=== PATIENT | male | born 1960 | race Caucasian/White ===

== ENCOUNTER 2023-03-04 14:28 | Observation (INO) | payer OTHER ==
[2023-03-04 15:37] LABS: Basophils % (A) 0 %; Eosinophils # (A) 0.2 k/uL (0-0.7); Eosinophils % (A) 2 %; HCT 43.7 % (39.0-53.0); HGB 14.6 gm/dL (13.0-17.5); Lymphocytes # (A) 2.3 k/uL (1.0-4.8); Lymphocytes % (A) 27 %; MCH 30.3 pg (25.0-35.0); MCHC 33.3 g/dL (31.0-37.0); Mean Platelet Volume 7.9; Monocytes # (A) 0.4 k/uL (0-1.0); Monocytes % (A) 4 %; Neutrophils # (A) 5.4 k/uL (1.3-7.7); Neutrophils % (A) 64 %; Platelet Count 246 k/uL (150-450); RDW 12.7 % (11.5-15.5); WBC 8.3 k/uL (3.8-10.6)
[2023-03-04 15:50] LABS: ALT 23 U/L (4-49); AST 21 U/L (17-59); African American GFR (CKD) >90 (>60 ml/min/1.73 sqM); Albumin 4.5 g/dL (3.5-5.0); Alkaline Phosphatase 80 U/L (38-126); Anion Gap 9 mmol/L; Blood Urea Nitrogen 19 mg/dL (9-20); C Reactive Protein 0.6 mg/dL (<1.0); Calcium 9.3 mg/dL (8.4-10.2); Carbon Dioxide 25 mmol/L (22-30); Chloride 105 mmol/L (98-107); Glucose 92 mg/dL (74-99); Non-African American GFR(CKD) >90 (>60 ml/min/1.73 sqM); Potassium 4.5 mmol/L (3.5-5.1); Sodium 139 mmol/L (137-145); Total Bilirubin 0.5 mg/dL (0.2-1.3); Total Protein 6.7 g/dL (6.3-8.2)
[2023-03-04] MEDS ORDERED: SODIUM CHLORIDE 0.9% 1,000 ML IV ONE (16:07)
--- NOTE | 2023-03-04 16:19 | ED ---
Eye Problem HPI - General Chief complaint: Eye Problems Stated complaint: Abn Labs Time Seen by Provider: 03/04/23 15:55 Source: patient, RN notes reviewed Mode of arrival: ambulatory Limitations: no limitations - History of Present Illness Initial comments: This is a pleasant 62-year-old male presents earns apparently blurry vision in the upper portion of his right eye which started about 5 days ago. Patient denying any pain. Patient states that the vision change seems to be staying about the same. He is describing a grade time vision to the upper portion of his right eye only. States that he is satting well on her left eye. Patient went to his eye doctor today and was eventually sent to Dr. Eldridge. Patient was sent here for further evaluation. Patient has a history of type 2 diabetes, hypertension. Patient sent over for carotid evaluation, as inflammatory markers, CBC. 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 Patient denying any chest pain or shortness of breath. No fever or chills. No sore throat. No nausea or vomiting. No abdominal pain. No focal weakness. No paresthesias. No dizziness. MD chief complaint: vision change - Related Data Allergies Allergy/AdvReac Type Severity Reaction Status Date / Time No Known Allergies Allergy Verified 03/04/23 14:58 Review of Systems ROS Statement: Those systems with pertinent positive or pertinent negative responses have been documented in the HPI. ROS Other: All systems not noted in ROS Statement are negative. Past Medical History Past Medical History: Diabetes Mellitus History of Any Multi-Drug Resistant Organisms: None Reported Past Surgical History: No Surgical Hx Reported Smoking Status: Former smoker Past Alcohol Use History: None Reported Past Drug Use History: None Reported General Exam - General Exam Comments Initial Comments: Patient does not appear to be in any distress, cranial nerves II through XII grossly intact. No focal neurologic deficits. Vital signs reviewed Limitations: no limitations General appearance: alert, in no apparent distress Head exam: Present: atraumatic, normocephalic, normal inspection Eye exam: Present: normal appearance, PERRL, EOMI, other (Visual field loss to the upper portion of the right eye. Visual acuity testing seems to be normal otherwise. 20/20 left eye. 20/25 right eye. Pupils equal round reactive to light and accommodation.). Absent: scleral icterus, conjunctival injection, periorbital swelling ENT exam: Present: normal exam, mucous membranes moist Neck exam: Present: normal inspection. Absent: tenderness, meningismus, lymphadenopathy Respiratory exam: Present: normal lung sounds bilaterally. Absent: respiratory distress, wheezes, rales, rhonchi, stridor Cardiovascular Exam: Present: regular rate, normal rhythm, normal heart sounds. Absent: systolic murmur, diastolic murmur, rubs, gallop, clicks GI/Abdominal exam: Present: soft, normal bowel sounds. Absent: distended, t enderness, guarding, rebound, rigid Extremities exam: Present: normal inspection, full ROM, normal capillary refill. Absent: tenderness, pedal edema, joint swelling, calf tenderness Back exam: Present: normal inspection Neurological exam: Present: alert, oriented X3, CN II-XII intact Psychiatric exam: Present: normal affect, normal mood Skin exam: Present: warm, dry, intact, normal color. Absent: rash Course Vital Signs 03/04/23 03/04/23 14:54 17:00 Temperature 98.5 F 98.1 F Pulse Rate 77 62 Respiratory 16 18 Rate Blood Pressure 131/74 131/74 O2 Sat by Pulse 96 99 Oximetry - Reevaluation(s) Reevaluation #1: 03/04/23 17:31 Reevaluated, resting comfortably in bed. No acute distress. No change in clinical status. The case was discussed in detail with ED attending physician. Presentation, findings, treatment plan discussed in detail. Call placed for hospitalist physician. Medical Decision Making - Medical Decision Making Was pt. sent in by a medical professional or institution? @ -[by , PA, BOOM PU[employer] OPERATOR, urgent care, hospital, or half-way] Did you speak to anyone other than the patient for history? Patient sent in by Dr. Eldridge, notes reviewed @ -[EMS, parent, family, police, friend?]no Did you review nursing and triage notes? @ -[agree or disagree, why?] Agree Were old charts reviewed? @ -[outside hosp., previous admissions, EMS record, old EKG, old radiological studies, urgent care reports/EKGs, half-way records?] Notes reviewed from ophthalmology office. Differential Diagnosis? @ Differential diagnosis includes but not limited to: Aspirin, visual field loss, CVA, temporal arteritis, retinal hemorrhage, vitreous hemorrhage. EKG interpreted by me (3pts min.)? @ -EKG interpretation by me at 1635 reveals sinus rhythm with a rate of 61, no acute ST or T-wave changes. No cares morphology. Normal axis. Normal intervals. No comparison study X-rays interpreted by me (1pt min.)? @ - None CT interpreted by me (1pt min.)? @ -[CT of brain and CTA head and neck interpreted by me shows no evidence of acute pathology. Reviewed radiology interpretation. U/S interpreted by me (1pt. min.)? @ -na What testing was considered but not performed? (CT, X-rays, U/S, labs)? Why? @ MRI considered, will order as inpatient What meds were considered but not given? Why? @ -[none] Did you discuss the management of the patient with other professionals? @ -Case discussed with the hospitalist physician, Dr. Horton would subsequent admission of patient., Discussed with mold tooler, Dr. Eldridge, The case was discussed in detail with ED attending physician. Presentation, findings, treatment plan discussed in detail. Did you reconcile home meds? @ -Review did not reconciled Was smoking cessation discussed for >3mins.? @ -Discussed, smoking cessation discussed in detail with the patient. Treatment, risks discussed.I discussed smoking cessation for greater than 3 minutes. The risks of smoking were discussed with the patient including but not limited to risks of cancer, stroke, coronary artery disease and COPD. Also discussed with the patient were multiple methods of quitting smoking. Lastly we discussed the financial costs of smoking. Was critical care preformed (if so, how long)? @ -[none] Were there social determinants of health that impacted care today? How? (Homelessness, low income, unemployed, alcoholism, drug addiction, tr ansportation, low edu. Level, literacy, decrease access to med. care, snf, rehab)? @ -None apparent Was there de-escalation of care discussed even if they declined? (Discuss DNR or withdrawal of care, Hospice)? @ -no What co-morbidities impacted this encounter? (DM, HTN, Smoking, COPD, CAD, Cancer, CVA, Hep., AIDS, mental health diagnosis, sleep apnea, morbid obesity)? @ -Hypertension Was patient admitted / discharged? @ -Stable, admitted Undiagnosed new problem with uncertain prognosis? @ -Uncertain prognosis, unlikely to posterior to life although a threat to vision. Drug Therapy requiring intensive monitoring for toxicity (Heparin, Nitro, Insulin, Cardizem)? @ -[none] Were any procedures done? @ -[none] Diagnosis/symptom? @ -Visual impairment, right eye Acute, or Chronic, or Acute on Chronic? @ -Acute Uncomplicated (without systemic symptoms) or Complicated (systemic symptoms)? @ -Complicated due to vision impairment Side effects of treatment? @ -[none] Exacerbation, Progression, or Severe Exacerbation] @ -[no] Poses a threat to life or bodily function? @ -Threat to vision Admission and discussed in detail, patient admitted for shared decision-making. - Lab Data Result diagrams: 03/04/23 15:02 03/04/23 15:02 Lab Results 03/04/23 03/04/23 Range/Units 15:02 15:02 WBC 8.3 (3.8-10.6) k/uL RBC 4.80 (4.30-5.90) m/uL Hgb 14.6 (13.0-17.5) gm/dL Hct 43.7 (39.0-53.0) % MCV 91.0 (80.0-100.0) fL MCH 30.3 (25.0-35.0) pg MCHC 33.3 (31.0-37.0) g/dL RDW 12.7 (11.5-15.5) % Plt Count 246 (150-450) k/uL MPV 7.9 Neutrophils % 64 % Lymphocytes % 27 % Monocytes % 4 % Eosinophils % 2 % Basophils % 0 % Neutrophils # 5.4 (1.3-7.7) k/uL Lymphocytes # 2.3 (1.0-4.8) k/uL Monocytes # 0.4 (0-1.0) k/uL Eosinophils # 0.2 (0-0.7) k/uL Basophils # 0.0 (0-0.2) k/uL Sodium 139 (137-145) mmol/L Potassium 4.5 (3.5-5.1) mmol/L Chloride 105 (98-107) mmol/L Carbon Dioxide 25 (22-30) mmol/L Anion Gap 9 mmol/L BUN 19 (9-20) mg/dL Creatinine 0.75 (0.66-1.25) mg/dL Est GFR (CKD-EPI)AfAm >90 (>60 ml/min/1.73 sqM) Est GFR (CKD-EPI)NonAf >90 (>60 ml/min/1.73 sqM) Glucose 92 (74-99) mg/dL Calcium 9.3 (8.4-10.2) mg/dL Total Bilirubin 0.5 (0.2-1.3) mg/dL AST 21 (17-59) U/L ALT 23 (4-49) U/L Alkaline Phosphatase 80 (38-126) U/L C-Reactive Protein 0.6 (<1.0) mg/dL Total Protein 6.7 (6.3-8.2) g/dL Albumin 4.5 (3.5-5.0) g/dL Disposition Clinical Impression: Visual impairment of right eye, Corneal abrasion Disposition: ADMITTED IP TO THIS [facility] Condition: Stable Is patient prescribed a controlled substance at d/c from ED?: No Referrals: Donal Garcia MD [Primary Care Provider] - 1-2 days Time of Disposition: 17:42 Decision Date: 03/04/23 Decision Time: 17:43
--- NOTE | 2023-03-04 16:34 | CT ---
EXAMINATION TYPE: CT brain wo con CT DLP: 1169.6 mGycm, Automated exposure control for dose reduction was used. DATE OF EXAM: 03/04/2023 4:27 PM COMPARISON: None. CLINICAL INDICATION:Male, 62 years old with history of vision loss, vision loss right eye TECHNIQUE: Brain: Axial CT images of the brain were obtained with coronal and sagittal reformats created and rev iewed. Contrast used: None. Oral contrast used: None. FINDINGS: Brain: Extra-axial spaces: No abnormal extra-axial fluid collections. Ventricular system: Within normal limits Cerebral parenchyma: Left frontal lobe remote appearing injury with encephalomalacia. No acute intrap arenchymal hemorrhage or mass effect. The quintero-white junction is well differentiated. Cerebellum: Unremarkable. Mass effect: No evidence of midline shift. Intracranial vasculature: Atherosclerotic calcifications of the intracranial vessels. Soft tissues: Normal. Calvarium/osseous structures: No depressed skull fracture. Paranasal sinuses and mastoid air cells: Mild scattered paranasal sinus disease. Visualized orbits: Orbital contents are intact. IMPRESSION: 1. No acute intracranial process. 2. Left frontal lobe remote appearing injury with encephalomalacia.
--- NOTE | 2023-03-04 16:57 | CT ---
EXAMINATION TYPE: CT angio head neck CT DLP: 501 mGycm, Automated exposure control for dose reduction was used. DATE OF EXAM: 03/04/2023 4:42 PM COMPARISON: CT head same day. CLINICAL INDICATION:Male, 62 years old with history of vision loss right eye; PHH, vision loss right eye TECHNIQUE: Axially acquired helical CT angiogram of the head and neck was obtained with contrast. Axi al images are supplemented with 3D reconstructions which [facility] NASCET criteria used. Contrast used:65ml mL of Isovue 370 with IV Contrast, Oral contrast used: None. FINDINGS: CTA HEAD: No evidence of acute intracranial hemorrhage, mass effect, or midline shift. The ventricles, sulci, a nd cisterns are unremarkable. The visualized portions of the internal carotid arteries, middle cerebral arteries, anterior cerebral arteries, and posterior cerebral arteries are patent. The basilar and vertebral arteries are patent. CTA NECK: Right Carotid System: The common carotid and external carotid arteries are patent. There is less than 25% stenosis at the c arotid bifurcation secondary to calcified plaque. The rest of the internal carotid artery is patent. Left Carotid System: The common carotid and external carotid arteries are patent. There is less than 25% stenosis at the c arotid bifurcation secondary to noncalcified plaque. The rest of the internal carotid artery is paten t. Vertebral arteries are patent without evidence hemodynamically significant stenosis. There is a three-vessel aortic arch. The origins of the great vessels are patent. No evidence of hemo dynamically significant stenosis. Upper thorax: Mild centrilobular and paraseptal emphysema changes. IMPRESSION: 1. No evidence of dissection of the cervical internal carotid arteries or vertebral arteries or any e vidence of significant stenosis at the carotid bifurcations. 2. No evidence of intracranial high-grade stenosis or intracranial aneurysm.
[2023-03-04] MEDS ORDERED: NALOXONE 0.4 MG/ML 1 ML VIAL IV PRN (17:43)
[2023-03-04] MEDS ORDERED: ONDANSETRON 4 MG/2 ML VIAL IVP PRN (17:51)
[2023-03-04] MEDS ORDERED: ACETAMINOPHEN TAB 325 MG TAB PO PRN (17:51)
[2023-03-04] MEDS ORDERED: ASPIRIN 325 MG TAB PO STA (17:53)
[2023-03-04] MEDS ORDERED: ARTIFICIAL TEARS-HYPROMELLOSE DROPS 15 ML BTL BOTH EYES PRN (22:00)
[2023-03-05] MEDS: HEPARIN SODIUM,PORCINE 5,000 UNIT/ML 1 ML VIAL SQ SCH ×4 (00:15→21:13)
[2023-03-05] MEDS ORDERED: ATORVASTATIN 80 MG TAB PO STA (00:31)
--- NOTE | 2023-03-05 00:34 | P.HPIM ---
History of Present Illness H&P Date: 03/04/23 Patient is a 62-year-old male with a PMH of type II DM, hypertension, tobacco abuse, and COPD who presents to the emergency room for impaired right eye vision. Patient notes his symptoms started around 5 days ago with a portion of his vision from the right eye being very. He reports that he gradually developed into a streak-like shadow running horizontally throughout his right eye vision. He notes that it has not been stable for the past 24-48 hours. He [place] the [facility] and was sent into the emergency room for further evaluation. Patient does report a mild diffuse headache 2 days ago but denies any right-sided occipital headache. Also denied experiencing generalized weakness and myalgias. Also denied history of CVA, unilateral weakness, or impaired speech or facial asymmetry. The recommendation from airport driver office was reviewed with diagnosis of Hollenhorst plaque of the right eye. Ophthalmology recommended that patient be evaluated for CVA. Cinda ent denied chest discomfort, shortness of breath, palpitations, fever, chills, cough. In the emergency room, a CT angiogram of head and neck was negative with CT brain showing left frontal lobe remote injury with encephalomalacia. EKG revealed sinus rhythm at 61 bpm with moderate intraventricular conduction delay with no additional ST/T-wave changes noted as reviewed by me. Laboratory evaluation was reviewed and was unremarkable. ED documentation reviewed and case discussed with ED provider. Review of systems: Pertinent positives and negatives as discussed in HPI, a complete review of systems was performed and all other systems are negative. Physical examination: Vital signs reviewed General: non toxic, no distress, appears at stated age, normal weight Derm: no unusual rashes/lesions, warm Head: atraumatic, normocephalic, symmetric Eyes: EOMI, no lid lag, anicteric sclera, pupils equal round reactive to light, right eye visual larose diffusely limited with grossly impaired central visual acuity ENT: Nose and ears atraumatic Neck: No cervical lymphadenopathy, trachea midline, supple Mouth: no lip lesion, mucus membranes moist Cardiovascular: S1S2 reg, no murmur, positive dorsalis pedis pulse bilateral, no edema Lungs: CTA bilateral, no rhonchi, no rales, no accessory muscle use Abdominal: soft, nontender to palpation, no guarding Ext: muscle strength 5 out of 5 in all 4 extremities grossly, no gross muscle atrophy, no contractures, Neuro: CN II-XI grossly intact, no gross focal neuro deficits, Psych: Alert, oriented, appropriate affect Assessment: Right eye impaired vision, rule out CVA Chronic conditions: Type II DM, hypertension, COPD Imaging: In the emergency room, a CT angiogram of head and neck was negative with CT brain showing left frontal lobe remote injury with encephalomalacia. EKG revealed sinus rhythm at 61 bpm with moderate intraventricular conduction delay with no additional ST/T-wave changes noted as reviewed by me. Data Review: Laboratory evaluation was reviewed and was unremarkable including WBC count 8.3, CRP 0.6. Plan: Cardiac monitoring Obtain echocardiogram MRI brain ordered Neurology consulted Continue with aspirin, statin F/u ESR levels C/w home meds with Insulin sliding scale DVT prophylaxis: Heparin subq The patient is admitted with an anticipated less than 2 midnight stay for evaluation of impaired vision CODE STATUS: Full Code Discussed with: Patient Anticipated discharge place: Home Past Medical History Past Medical History: Asthma, COPD, Diabetes Mellitus History of Any Multi-Drug Resistant Organisms: None Reported Past Surgical History: No Surgical Hx Reported Smoking Status: Former smoker Past Alcohol Use History: None Reported Past Drug Use History: None Reported Medications and Allergies Home Medications Medication Instructions Recorded Confirmed Type Albuterol Inhaler [Ventolin Hfa 1 - 2 puff INHALATION RT-QID PRN 03/04/23 03/04/23 History Inhaler] Fluticasone/Umeclidin/Vilanter 1 puff INHALATION RT-DAILY 03/04/23 03/04/23 History [Trelegy Ellipta 200-62.5-25] Liraglutide [Victoza 2-[place]] 1.2 mg SQ HS@1800 03/04/23 03/04/23 History lisinopriL [Prinivil] 10 mg PO DAILY 03/04/23 03/04/23 History metFORMIN HCL [Glucophage] 500 mg PO BID 03/04/23 03/04/23 History Allergies Allergy/AdvReac Type Severity Reaction Status Date / Time No Known Allergies Allergy Verified 03/04/23 18:46 Physical Exam Vitals: Vital Signs Temp Pulse Pulse Resp BP BP Pulse Ox 03/04/23 20:59 97.5 F L 58 L 15 162/83 97 03/04/23 20:29 65 127/77 96 03/04/23 18:59 98.1 F 62 18 168/84 98 03/04/23 17:00 98.1 F 62 18 131/74 99 03/04/23 14:54 98.5 F 77 16 131/74 96 Intake and Output 03/04/23 03/04/23 03/05/23 14:59 22:59 06:59 Other: Voiding Method Toilet # Voids 1 Weight 92.079 kg 92.079 kg Results CBC & Chem 7: 03/04/23 15:02 03/04/23 15:02
[2023-03-05 04:51] LABS: Erythrocyte Sedimentation Rate 18 mm/Hr (0-20)
[2023-03-05 05:58] LABS: Glucose,Whole Blood 82 mg/dL (70-110)
[2023-03-05] MEDS: INSULIN ASPART (NovoLOG) 100 UNIT/ML VIAL SQ SCH ×4 (06:04→21:10)
[2023-03-05] MEDS: lisinopriL 10 MG TAB PO SCH (08:28)
[2023-03-05] MEDS: ASPIRIN 81 MG PO SCH (08:28)
[2023-03-05] MEDS: SYMBICORT 80-4.5 MCG INHALER INHALATION SCH ×2 (08:47→21:00)
[2023-03-05] MEDS: IPRATROPIUM 0.5 MG/2.5 ML NEBU INHALATION SCH ×4 (08:48→21:00)
--- NOTE | 2023-03-05 11:27 | MR ---
EXAMINATION TYPE: MR brain wo con DATE OF EXAM: 03/05/2023 COMPARISON: 03/04/2023 HISTORY: Rt eye vision impairment TECHNIQUE: T1-weighted sagittal, T2, FLAIR, and diffusion axial, and T2 coronal coronal views of the brain are submitted. FINDINGS: There is no evidence of acute ischemia. There is moderate generalized degenerative change. There areas of abnormal signal in the sacrum seen in the white matter bilaterally as well as within the right occipital lobe compatible with remote isc hemia. No midline shift or mass effect. Craniocervical junction maintained. Sella turcica has a normal appearance. There is a 5 mm nodule lucinda ng the upper medial margin of the bilateral orbit which is incompletely imaged. May represent normal partial volume averaging anatomic structure appears somewhat asymmetric on the left. Consider orbital MRI. Mild chronic sinusitis. Soft tissue varicosities noted. IMPRESSION: 1. No acute intracranial process. Consider short-term follow-up orbital CT with contrast as discussed above. 2. Moderate degenerative and evidence of remote ischemic change as discussed above.
[2023-03-05 11:54] LABS: Glucose,Whole Blood 78 mg/dL (70-110)
--- NOTE | 2023-03-05 13:55 | P.PN ---
Subjective Progress Note Date: 03/05/23 Patient is a 62-year-old male with a PMH of type II DM, hypertension, tobacco abuse, and COPD who presents to the emergency room for impaired right eye vision. Patient notes his symptoms started around 5 days ago with a portion of his vision from the right eye being very. He reports that he gradually de veloped into a streak-like shadow running horizontally throughout his right eye vision. He notes that it has not been stable for the past 24-48 hours. He was seen at the full stack java developer's office and was sent into the emergency room for further evaluation. Patient does report a mild diffuse headache 2 days ago but denies any right-sided occipital headache. Also denied experiencing generalized weakness and myalgias. Also denied history of CVA, unilateral weakness, or impaired speech or facial asymmetry. The recommendation from [employer] office was reviewed with diagnosis of Hollenhorst plaque of the right eye. Ophthalmology recommended that patient be evaluated for CVA. Patient denied chest discomfort, shortness of breath, palpitations, fever, chills, cough. In the emergency room, a CT angiogram of head and neck was negative with CT brain showing left frontal lobe remote injury with encephalomalacia. EKG revealed sinus rhythm at 61 bpm with moderate intraventricular conduction delay with no additional ST/T-wave changes noted as reviewed by me. Laboratory evaluation was reviewed and was unremarkable. 03/05 Patient was seen and examined. No acute events overnight. He continues to reports right sided peripheral vision loss. No slurred speech. No confusion. No focal deficits. General: non toxic, no distress, appears at stated age, normal weight Derm: no unusual rashes/lesions, warm Head: atraumatic, normocephalic, symmetric Eyes: EOMI, no lid lag, anicteric sclera, right eye visual larose diffusely limited with grossly impaired central visual acuity ENT: Nose and ears atraumatic Neck: No cervical lymphadenopathy, trachea midline, supple Cardiovascular: S1S2 reg, no murmur, no edema Lungs: CTA bilateral, no rhonchi, no rales, no accessory muscle use Ext: muscle strength 5 out of 5 in all 4 extremities grossly, no gross muscle atrophy, no contractures, Neuro: no gross focal neuro deficits Psych: Alert, oriented, appropriate affect Right eye impaired vision, rule out CVA Chronic conditions: Type II DM, hypertension, COPD Based on my assessment of this patient, this patient meets a high complexity level of care. Patient has an acute diagnosis of right eye vision loss concerning for embolic phenomenon that poses a threat to life or bodily function. Right eye impaired vision, rule out CVA: MRI brain and Echocardiogram. ESR and CRP ordered. Discussed with Dr. Roberts, start ASA and Plavix (21 days), Telemetry monitoring. Neurochecks. PT/OT/ST on board. I have reviewed the following educational consultant notes: I have reviewed the results of the following tests: I have ordered the following tests: MRI brain. Echo. ESR. CRP. I have discussed the care of this patient with the following independent historian: I have independently interpreted the following test below: I have discussed the management of this patient with the following physician: Discussed with Dr. Roberts as above. Objective - Vital Signs Vital signs: Vital Signs Temp 97.4 F L 03/05/23 13:34 Pulse 63 03/05/23 13:34 Resp 16 03/05/23 13:34 BP 163/88 03/05/23 13:34 Pulse Ox 99 03/05/23 13:34 FiO2 Intake & Output 03/04/23 03/05/23 03/05/23 18:59 06:59 18:59 Weight 92.079 kg 92.079 kg Other: Voiding Method Toilet Toilet # Voids 1 4 # Bowel Movements 1 - Labs CBC & Chem 7: 03/04/23 15:02 03/04/23 15:02
--- NOTE | 2023-03-05 15:42 | P.CNNES ---
History of Present Illness Consult date: 03/05/23 Requesting physician: Arely Kapoor Reason for Consult: r/o cva, visual loss History of Present Illness: This is a 62-year-old gentleman who stated that he is having the visual disturbance over the right eye for the past 1 week at least. He said that he could not see off the right eye of the upper half. He denies of any headache currently. Denies of any nausea any vomiting. Denies any trauma to the head or falls appear denies of any focal weakness, numbness, difficulty swallowing or getting his words out. Denies of any history of stroke. He does take aspirin at home. He denies of any atrial fibrillation or flutter. He stopped smoking about 2 years ago. 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 Some of the work-up during this hospital visit consisted of: ESR: 18, CRP 0.6 CBC with diff is negative. TSH: 0.[address] head is reported as No acute intracranial process. Left frontal lobe remote appearing injury with encephalomalcia. I personally reviewed CT and agree with report. CTA head and neck: No evidence of dissection of the cervical internal carotid arteries or vertebral arteries or any evidence of significant stenosis at the carotid bificurcation. No evidence of intracranial asuncion grade stenosis or intracranial aneurysm. MRI Brain: No acute intracranial process. Consider short-term follow-up orbital CT with contrast as discussed above. Moderate degenerative and evidence remote ischemic change as discussed above. Review of Systems Review of system: The 12 point system was reviewed and apparent positive and negative per HPI. Past Medical History Past Medical History: Asthma, COPD, Diabetes Mellitus History of Any Multi-Drug Resistant Organisms: None Reported Past Surgical History: No Surgical Hx Reported Smoking Status: Former smoker Past Alcohol Use History: None Reported Past Drug Use History: None Reported Medications and Allergies Home Medications Medication Instructions Recorded Confirmed Type Albuterol Inhaler [Ventolin Hfa 1 - 2 puff INHALATION RT-QID PRN 03/04/23 03/04/23 History Inhaler] Fluticasone/Umeclidin/Vilanter 1 puff INHALATION RT-DAILY 03/04/23 03/04/23 History [Trelegy Ellipta 200-62.5-25] Liraglutide [Victoza 2-[place]] 1.2 mg SQ HS@1800 03/04/23 03/04/23 History lisinopriL [Prinivil] 10 mg PO DAILY 03/04/23 03/04/23 History metFORMIN HCL [Glucophage] 500 mg PO BID 03/04/23 03/04/23 History Allergies Allergy/AdvReac Type Severity Reaction Status Date / Time No Known Allergies Allergy Verified 03/04/23 18:46 Physical Examination - Vital Signs Vital Signs: Vital Signs Temp Pulse Pulse Resp BP BP BP 03/05/23 13:34 97.4 F L 63 16 163/88 03/05/23 08:00 16 03/05/23 07:00 97.5 F L 65 16 145/89 03/05/23 01:28 97.5 F L 54 L 16 108/64 03/04/23 20:59 97.5 F L 58 L 15 162/83 03/04/23 20:29 65 127/77 03/04/23 18:59 98.1 F 62 18 168/84 03/04/23 17:00 98.1 F 62 18 131/74 Pulse Ox 03/05/23 13:34 99 03/05/23 08:00 03/05/23 07:00 96 03/05/23 01:28 97 03/04/23 20:59 97 03/04/23 20:29 96 03/04/23 18:59 98 03/04/23 17:00 99 Intake and Output 03/05/23 03/05/23 03/05/23 06:59 14:59 22:59 Other: Voiding Method Toilet # Voids 4 # Bowel Movements 1 GENERAL: The patient is lying in bed and is not in acute distress. NEUROLOGICAL: Higher mental function: The patient is awake, alert, oriented to self, place and time. Patient is following commands. No aphasia and no neglect. Cranial nerves: The pupils are round, equal and reactive to light. Visual larose is has complete vision loss of right upper field of right eye. Otherwise full to confrontation throughout. Extraocular movement is intact no nystagmus is noted. Facial sensation is normal to touch throughout. The facial strength is normal throughout. Hearing is normal bilaterally to hand rub. Tongue is midline and moved [id number] without any difficulty. No dysarthria is noted. Shoulder shrug is normal bilaterally. Motor: The strength is 5 over 5 throughout. Normal tone and bulk. Cerebellum: Normal finger to nose heel to chin bilaterally. Sensation: Sensation is normal to touch throughout. Reflexes (right/left): 2+ throughout. Plantars are downgoing bilaterally. 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 Patient denies any history of stroke but on the CTA shows the patient had the old left frontal encephalomalacia. CT angiography of the head and neck was negative. MRI the brain was negative for any acute or subacute stroke. ESR is normal. Acute right upper vision loss seems due to retinal artery occlusion. Unsure if the patient had emboli especially with a previous history of stroke and with the new visual disturbance leading up to vision loss. History of left frontal encephalomalacia on CT and patient is not aware that he had a previous stroke in the past Type II Diabetes X tobacco use about 2 years ago Alcohol cessation about 12 years ago Plan: 2-D echo was ordered and is pending Consider MRI of the orbit as an outpatient Patient was resumed on his home dose of aspirin 81 mg daily in addition I started the patient on Plavix 75 mg daily. Patient to be on dual antiplatelets and after the 21 days stop aspirin but continue Plavix indefinitely from a neurologic perspective. Patient is currently on the Lipitor 80 mg daily at bedtime Recommend a 30 day event monitor to rule out any A. fib or flutter. Pending hemoglobin A1c Continue neuro checks Cardiac monitoring PT OT and WEB PRESS OPERATOR HELPER OFFSET are consulted We'll defer the rest of the medical management to primary team Upon discharge recommend the patient to follow-up with a neurologist and investment representative as an outpatient. For DVT prophylaxis the patient is on subcu heparin 5000 units every 8 hours The plan discussed with the patient, primary attending and his nurse Thank you consultation Time with Patient: Greater than 30
[2023-03-05 17:02] LABS: Chol/HDL Ratio 3.05 Ratio; LDL Cholesterol,Calculated 65.2 mg/dL (0.0-131.0)
[2023-03-05 17:06] LABS: Glucose,Whole Blood 82 mg/dL (70-110)
--- NOTE | 2023-03-05 18:28 | CA ---
Transthoracic Echo Report Name: Joshua Pineda Age: 62 Gender: M : 1960 Exam Date: 03/05/2023 15:43 Exam Location: [facility] Ht (in): 71 Wt (lb): 203 Ordering Physician: Tereso Aguilar MD Attending/Referring Phys: Party Chief Russell Sotelo Procedure CPT: Indications: CVA Cardiac Hx: Technical Quality: Technically difficult study Contrast 1: Definity Total Dose (mL): 5 Contrast 2: Total Dose (mL): MEASUREMENTS (Male / Female) Normal Values 2D ECHO LV Diastolic Diameter PLAX 4.9 cm 4.2 - 5.9 / 3.9 - 5.3 cm LV Systolic Diameter PLAX 3.0 cm IVS Diastolic Thickness 1.4 cm 0.6 - 1.0 / 0.6 - 0.9 cm LVPW Diastolic Thickness 1.5 cm 0.6 - 1.0 / 0.6 - 0.9 cm LV Relative Wall Thickness 0.6 RV Internal Dim ED PLAX 3.2 cm LVOT Diameter 2.9 cm Aortic Root Diameter 4.3 cm LA Systolic Diameter LX 2.5 cm 3.0 - 4.0 / 2.7 - 3.8 cm LV Diastolic Volume MOD 4C 62.4 cm??? LV Systolic Volume MOD 4C 30.4 cm??? LV Ejection Fraction MOD 4C 51.3 % LV Cardiac Index MOD 4C 945.8 cm???/min???m??? LV Diastolic Length 4C 7.3 cm LV Systolic Length 4C 6.9 cm LA Volume 46.7 cm??? 18 - 58 / 22 - 52 cm??? LA Volume Index 21.6 cm???/m??? 16 - 28 cm???/m??? Ascending Aorta Diameter 3.2 cm DOPPLER AV Peak Velocity 212.9 cm/s AV Peak Gradient 18.1 mmHg AV Mean Velocity 162.8 cm/s AV Mean Gradient 14.2 mmHg AV Velocity Time Integral 53.1 cm LVOT Peak Velocity 69.0 cm/s LVOT Peak Gradient 1.9 mmHg LVOT Velocity Time Integral 21.6 cm LVOT Stroke Volume 144.4 cm??? LVOT Stroke Volume Index 68.1 ml/m??? LVOT Cardiac Index 4268.4 cm???/min???m??? AV Area Cont Eq vti 2.7 cm??? AV Area Cont Eq pk 2.2 cm??? MV Peak Velocity 122.7 cm/s MV Peak Gradient 6.0 mmHg MV Mean Velocity 61.7 cm/s MV Mean Gradient 1.9 mmHg MV Velocity Time Integral 48.4 cm Mitral E Point Velocity 100.0 cm/s Mitral A Point Velocity 119.8 cm/s Mitral E to A Ratio 0.8 MV Deceleration Time 339.1 ms MV E' Velocity 7.6 cm/s Mitral E to MV E' Ratio 13.2 TR Peak Velocity 119.8 cm/s TR Peak Gradient 5.7 mmHg PV Peak Velocity 99.9 cm/s PV Peak Gradient 4.0 mmHg FINDINGS Left Ventricle Mildly increased septal wall thickness. Normal LV size. Normal left ventricular wall motion. Left ventricular ejection fraction is estimated at 55-60 %. Right Ventricle Normal right ventricular size. Right Atrium Normal right atrial size. Left Atrium Normal left atrial size. Mitral Valve Structurally normal mitral valve. Trace mitral regurgitation.mitral annular calcification. Aortic Valve AV appears heavily calcified. No aortic regurgitation. Moderate aortic stenosis with a mean gradient of 23 mmHg and a peak of 38 mmHg. Tricuspid Valve Structurally normal tricuspid valve. Trace TR. Pulmonic Valve Pulmonic valve not well visualized. Pericardium Normal pericardium. Aorta AO root hola= 4.3cm CONCLUSIONS Technically very difficult secondary to COPD. Definity ECHO contrast used for improved visualization of the endocardial borders (inadequate visualization of two or more contiguous segments). Normal left ventricle size and systolic function Heavily calcified aortic valve with at least moderate aortic stenosis but not well-visualized Mitral annulus calcification Previewed by: Dr. Yolanda Garcia MD (Electronically Signed) Final Date: 05 March 2023 18:27
[2023-03-05 20:43] LABS: Glucose,Whole Blood 154 mg/dL (70-110)
[2023-03-05] MEDS ORDERED: ATORVASTATIN 80 MG TAB PO SCH (21:00)
[2023-03-06 05:39] LABS: Glucose,Whole Blood 88 mg/dL (70-110)
[2023-03-06] MEDS: INSULIN ASPART (NovoLOG) 100 UNIT/ML VIAL SQ SCH (05:52)
[2023-03-06] MEDS: lisinopriL 10 MG TAB PO SCH (08:20)
[2023-03-06] MEDS: ASPIRIN 81 MG PO SCH (08:20)
[2023-03-06] MEDS: HEPARIN SODIUM,PORCINE 5,000 UNIT/ML 1 ML VIAL SQ SCH (08:21)
[2023-03-06 08:25] VITALS: BP 102/68; PULSE 70; RESP 15; TEMP 98
[2023-03-06] MEDS ORDERED: CLOPIDOGREL 75 MG TAB PO SCH (09:00)
[2023-03-06] MEDS: IPRATROPIUM 0.5 MG/2.5 ML NEBU INHALATION SCH ×2 (09:08→12:02)
[2023-03-06] MEDS: SYMBICORT 80-4.5 MCG INHALER INHALATION SCH (09:08)
--- NOTE | 2023-03-06 11:13 | P.DS ---
Providers Date of admission: 03/04/23 17:44 Expected date of discharge: 03/06/23 Attending physician: Rocio Horton DO Consults: 03/04/23 20:34 Consult Physician Urgent Consulting Provider: Canelo Roberts Consult Reason/Comments: r/o CVA, visual loss Do you want consulting provider notified?: Yes Primary care physician: Donal Garcia [facility] Course: Patient is a 62-year-old male with a PMH of type II DM, hypertension, tobacco abuse, and COPD who presents to the emergency room for impaired right eye vision. Patient notes his symptoms started around 5 days ago with a portion of his vision from the right eye being very. He reports that he gradually developed into a streak-like shadow running horizontally throughout his right eye vision. He notes that it has not been stable for the past 24-48 hours. He was seen at the laborer cook house's office and was sent into the emergency room for further evaluation. Patient does report a mild diffuse headache 2 days ago but denies any right-sided occipital headache. Also denied experiencing generalized weakness and myalgias. Also denied history of CVA, unilateral weakness, or impaired speech or facial asymmetry. The recommendation from laborer cook house office was reviewed with diagnosis of Hollenhorst plaque of the right eye. Ophthalmology recommended that patient be evaluated for CVA. Patient denied chest discomfort, shortness of breath, palpitations, fever, chills, cough. In the emergency room, a CT angiogram of head and neck was negative with CT brain showing left frontal lobe remote injury with encephalomalacia. EKG revealed sinus rhythm at 61 bpm with moderate intraventricular conduction delay with no additional ST/T-wave changes noted as reviewed by me. Laboratory evaluation was reviewed and was unremarkable. 03/05 Patient was seen and examined. No acute events overnight. He continues to reports right sided peripheral vision loss. No slurred speech. No confusion. No focal deficits. 03/06 Patient was seen and examined. No changes in vision. No other complaints. MRI brain showed no acute intracranial process, 5 mm nodule along the upper medial margin of the bilateral orbit. Echo showed moderate , normal LV systolic function. ESR and CRP negative. Discussed with Dr. Roberts, continue ASA and Lipitor indefitely and Plavix for 21 days. Patient fitted for event monitor. Follow up with Dr. Eldridge within 3 days of discharge. Follow up with Dr. Garcia and Dr. Boyd within 1 week of discharge. Follow up with PCP within 1-2 days of discharge. Pertinent studies Brain CT, CTA head and neck, MRI brain, Echo. General: non toxic, no distress, appears at stated age, normal weight Derm: no unusual rashes/lesions, warm Head: atraumatic, normocephalic, symmetric Eyes: EOMI, no lid lag, anicteric sclera, right eye visual larose impaired peripheral vision ENT: Nose and ears atraumatic Neck: No cervical lymphadenopathy, trachea midline, supple Cardiovascular: S1S2 reg, no murmur, no edema Lungs: CTA bilateral, no rhonchi, no rales, no accessory muscle use Ext: muscle strength 5 out of 5 in all 4 extremities grossly, no gross muscle atrophy, no contractures, Neuro: no gross focal neuro deficits Psych: Alert, oriented, appropriate affect Discharge Diagnosis: Right eye impaired vision Possible retinal artery occlusion History of CVA in the past Tobacco abuse Chronic conditions: Type II DM, hypertension, COPD This complex discharge took 35 minutes to complete. Patient Condition at Discharge: Stable Plan - Discharge Summary New Discharge Prescriptions: New Aspirin 81 mg PO DAILY #30 tab Atorvastatin [Lipitor] 80 mg PO HS #30 tab Clopidogrel [Plavix] 75 mg PO DAILY #21 tab Continue lisinopriL [Prinivil] 10 mg PO DAILY Liraglutide [Victoza 2-[place]] 1.2 mg SQ HS@1800 Fluticasone/Umeclidin/Vilanter [Trelegy Ellipta 200-62.5-25] 1 puff INHALATION RT-DAILY metFORMIN HCL [Glucophage] 500 mg PO BID Albuterol Inhaler [Ventolin Hfa Inhaler] 1 - 2 puff INHALATION RT-QID PRN PRN Reason: Shortness Of Breath Discharge Medication List Albuterol Inhaler [Ventolin Hfa Inhaler] 1 - 2 puff INHALATION RT-QID PRN 03/04/23 [History] Fluticasone/Umeclidin/Vilanter [Trelegy Ellipta 200-62.5-25] 1 puff INHALATION RT-DAILY 03/04/23 [History] Liraglutide [Victoza 2-[place]] 1.2 mg SQ HS@1800 03/04/23 [History] lisinopriL [Prinivil] 10 mg PO DAILY 03/04/23 [History] metFORMIN HCL [Glucophage] 500 mg PO BID 03/04/23 [History] Aspirin 81 mg PO DAILY #30 tab 03/06/23 [Rx] Atorvastatin [Lipitor] 80 mg PO HS #30 tab 03/06/23 [Rx] Clopidogrel [Plavix] 75 mg PO DAILY #21 tab 03/06/23 [Rx] Follow up Appointment(s)/Referral(s): Yolanda Garcia MD [STAFF PHYSICIAN] - 1 Week Haley Eldridge MD [STAFF PHYSICIAN] - 3 Days Donal Garcia MD [Primary Care Provider] - 1-2 days Saad Boyd MD [Medical Doctor] - 1 Week Activity/Diet/Wound Care/Special Instructions: Obtain MRI orbit in the outpatient setting. Event monitor for 30 days. Follow up with Cardiology or PCP for results. Take Plavix for 21 days and then discontinue. Take aspirin and Lipitor indefinitely until instructed by your PCP or Neurologist. RETURN TO ER FOR WORSENING SYMPTOMS, PROBLEMS, OR CONCERNS. Discharge Disposition: HOME SELF-CARE
--- NOTE | 2023-03-06 14:10 | P.PN ---
Subjective Progress Note Date: 03/06/23 I am following-up with patient and he feels about the same. He continues to have vision loss out of right upper eye. Denies headache. Objective - Vital Signs Vital signs: Vital Signs Temp 98 F 03/06/23 07:10 Pulse 70 03/06/23 08:00 Resp 15 03/06/23 08:00 BP 102/68 03/06/23 07:10 Pulse Ox 98 03/06/23 07:10 FiO2 Intake & Output 03/05/23 03/06/23 03/06/23 18:59 06:59 18:59 Intake Total 680 Balance 680 Intake: Oral 680 Other: Voiding Method Toilet Toilet Toilet # Voids 4 3 # Bowel Movements 1 - Exam GENERAL: The patient is sitting in a recliner chair and is not in acute distress. NEUROLOGICAL: Higher mental function: The patient is awake, alert, oriented to self, place and time. Patient is following commands. No aphasia and no neglect. Cranial nerves: The pupils are round, equal and reactive to light. Visual larose is has complete vision loss of right upper field of right eye. Otherwise full to confrontation throughout. Extraocular movement is intact no nystagmus is noted. Facial sensation is normal to touch throughout. The facial strength is normal throughout. Hearing is normal bilaterally to hand rub. Tongue is midline and moved head-lx-feir without any difficulty. No dysarthria is noted. Shoulder shrug is normal bilaterally. Motor: The strength is 5 over 5 throughout. Normal tone and bulk. Cerebellum: Normal finger to nose heel to chin bilaterally. Sensation: Sensation is normal to touch throughout. Reflexes (right/left): 2+ throughout. Plantars are downgoing bilaterally. Some of the work-up during this hospital visit consisted of: ESR: 18, CRP 0.6 CBC with diff is negative. TSH: 0.688 Calcium 9.3 Lipid panel: TG 158, Cholestrol 144, LDL 65 and HDL 47 HbA1c: 6.3 CT head is reported as No acute intracranial process. Left frontal lobe remote appearing injury with encephalomalcia. I personally reviewed CT and agree with report. CTA head and neck: No evidence of dissection of the cervical internal carotid arteries or vertebral arteries or any evidence of significant stenosis at the carotid bificurcation. No evidence of intracranial asuncion grade stenosis or intracranial aneurysm. MRI Brain: No acute intracranial process. Consider short-term follow-up orbital CT with contrast as discussed above. Moderate degenerative and evidence remote ischemic change as discussed above. 2D echo was reported as technically very difficult secondary due to COPD. Defin itely echo contrast used for improved visualization of the endocardial borders. Normal left ventricular size and soft portion. Heavily calcified aortic valve with at least moderate aortic stenosis but not well visualized. Mitral annulus calcification. - Labs CBC & Chem 7: 03/04/23 15:02 03/04/23 15:02 Labs: Abnormal Lab Results - Last 24 Hours (Table) 03/05/23 03/05/23 03/05/23 Range/Units 09:39 09:39 20:41 POC Glucose (mg/dL) 154 H (70-110) mg/dL Hemoglobin A1c 6.3 H (<=6.0) % Triglycerides 158.00 H (0.00-149.00) mg/dL Assessment and Plan Assessment: This is a 62-year-old gentleman who had right upper vision loss for at least one week and was a valid by milling machinist as an outpatient and was felt he had Hollenhort plaque of right eye and sent patient to ED for CVA work-up. Patient denies any history of stroke but on the CTA shows the patient had the old left frontal encephalomalacia. CT angiography of the head and neck was negative. MRI the brain was negative for any acute or subacute stroke. ESR is normal. Acute right upper vision loss seems due to retinal artery occlusion. Unsure if the patient had emboli especially with a previous history of stroke and with the new visual disturbance leading up to vision loss. MRI Brain is negative. History of left frontal encephalomalacia on CT and patient is not aware that he had a previous stroke in the past Type II Diabetes X tobacco use about 2 years ago Alcohol cessation about 12 years ago Plan: 2D echo was reported as technically very difficult secondary due to COPD. Definitely echo contrast used for improved visualization of the endocardial arden rders. Normal left ventricular size and soft portion. Heavily calcified aortic valve with at least moderate aortic stenosis but not well visualized. Mitral annulus calcification. Consider repeat 2D echo as outpatient vs LIAM as outpatient and patient to follow-up with literary agent as outpatient. Consider MRI of the orbit as an outpatient Patient was resumed on his home dose of aspirin 81 mg daily in addition I started the patient on Plavix 75 mg daily. Patient to be on dual antiplatelets and after the 21 days stop aspirin but continue Plavix indefinitely from a neurologic perspective. Patient is currently on the Lipitor 80 mg daily at bedtime Recommend a 30 day event monitor to rule out any A. fib or flutter. He was placed on event monitor today. Continue neuro checks Cardiac monitoring PT OT and BAG PRESSER are consulted We'll defer the rest of the medical management to primary team Upon discharge recommend the patient to follow-up with a neurologist and milling machinist as an outpatient within 2-3 weeks. For DVT prophylaxis the patient is on subcu heparin 5000 units every 8 hours The plan discussed with the patient, primary attending and his nurse There is no further neurological work-up. Time with Patient: Less than 30
== END 2023-03-06 11:55 | disposition home or self-care (01) ==
LOC: EC 14:28 → 6NMEDSUR 17:44
PROVIDERS: ADMIT Internal Medicine; ATTEND Internal Medicine
DX: H53.8 Other visual disturbances (principal); H54.61 Unqualified visual loss, right eye, normal vision left eye; H34.211 Partial retinal artery occlusion, right eye; S05.01XA Injury of conjunctiva and corneal abrasion without foreign body, right eye, initial encounter; R51.9 Headache, unspecified; E11.9 Type 2 diabetes mellitus without complications; I10 Essential (primary) hypertension; I08.0 Rheumatic disorders of both mitral and aortic valves; G93.89 Other specified disorders of brain; I45.9 Conduction disorder, unspecified; J44.9 Chronic obstructive pulmonary disease, unspecified; Z79.84 Long term (current) use of oral hypoglycemic drugs; Z79.51 Long term (current) use of inhaled steroids; Z79.899 Other long term (current) drug therapy; Z79.82 Long term (current) use of aspirin; Z87.891 Personal history of nicotine dependence; Z71.6 Tobacco abuse counseling
CPT/HCPCS: 96372; 99285; 36415; 93005; 93270; 97161; 97165; 80061; 80053; 85652 ×2; 84443; 85025; 86140 ×2; 83036; 70496; 70450; 70498; 70551; G0378 ×3; C8929; J1644; Q9957; Q9967; 93306